=== PATIENT | female | born 1995 | race Caucasian/White ===

== ENCOUNTER 2016-10-05 14:14 | Inpatient (IN) | payer OTHER ==
[~2016-10-05] VITALS: Ht 160 cm; Wt 59.0 kg
[2016-10-05 14:35] VITALS: BP_SYST 101
[2016-10-05] MEDS ORDERED: VANCOMYCIN HCL 1,000 MG in NS 250 ML IV ONE (16:00)
[2016-10-05] MEDS ORDERED: MORPHINE 4 MG/ML INJ. SYRINGE IVP ONE (16:15)
[2016-10-05] MEDS ORDERED: DIPHENHYDRAMINE INJ 50 MG/ML VIAL IVP ONE (16:15)
[2016-10-05] MEDS ORDERED: VANCOMYCIN HCL 1000 MG/VIAL IV ONE ×2 (16:39→21:13)
[2016-10-05 16:48] LABS: HEMATOCRIT 39.1 % (36-48); HEMOGLOBIN 12.9 g/dL (12.0-16.0); MEAN CORPUSCULAR HEMOGLOBIN 29 pg (27-31); MEAN CORPUSCULAR HGB CONC 33 % (32-36); MEAN CORPUSCULAR VOLUME 89 fL (79.0-98.0); PLATELET COUNT (AUTO) 187 K/uL (130-430); RED CELL DISTRIBUTION WIDTH 11.9 % (9.0-15.0); WHITE BLOOD COUNT (AUTO) 5.5 K/uL (4.8-10.8)
[2016-10-05 16:48] LABS: BILIRUBIN,URINE NEGATIVE (NEGATIVE); BLOOD, URINE NEGATIVE (NEGATIVE); CLARITY/URINE HAZY (CLEAR); COLOR,URINE YELLOW (YELLOW); GLUCOSE,URINE NEGATIVE (NEGATIVE); KETONES,URINE NEGATIVE (NEGATIVE); LEUKOCYTE ESTERASE ,URINE TRACE (NEGATIVE); NITRITE, URINE NEGATIVE (NEGATIVE); PROTEIN URINE NEGATIVE (NEGATIVE); UROBILINOGEN,URINE 0.2 (0.2-1.0)
[2016-10-05 16:56] LABS: ALBUMIN 3.7 g/dL (3.4-4.8); CALCIUM 8.3 mg/dL (8.4-11.0); CREATININE 0.96 mg/dL (0.55-1.30); POTASSIUM 3.9 mmol/L (3.5-5.1); TOTAL BILIRUBIN 0.2 mg/dL (0.0-1.0); TOTAL PROTEIN, SERUM 7.2 g/dL (6.4-8.3)
[2016-10-05 17:13] LABS: BAND % (MANUAL) 1 % (0-6); BASOPHILS % (MANUAL) 0 % (0-2); EOSINOPHILS % (MANUAL) 14 % (0-7); LYMPHOCYTES % (MANUAL) 16 % (20-46); MONOCYTES % (MANUAL) 6 % (0-11)
[2016-10-05 17:17] LABS: BACTERIA,URINE FEW /HPF (None Seen); RBC,URINE 0-3 /HPF (0-3)
[2016-10-05] MEDS ORDERED: ONDANSETRON HCL 4 MG/2 ML VIAL IVP PRN (19:30)
[2016-10-05] MEDS ORDERED: ACETAMINOPHEN 325 MG TABLET PO PRN (19:30)
[2016-10-05] MEDS ORDERED: IBUP-1969 PO (19:48)
[2016-10-05] MEDS ORDERED: SULF1TAB48 PO (19:48)
[2016-10-05] MEDS ORDERED: CEPH-568 PO (19:48)
[2016-10-05 20:14] VITALS: BP_SYST 99
[2016-10-05 20:15] VITALS: BP_SYST 101
[2016-10-05 20:30] VITALS: BP_SYST 101
[2016-10-05] MEDS: KETOROLAC TROMETHAMINE 15 MG VIAL IVP PRN (22:07)
[2016-10-06] VITALS (7 sets, daily range): BP systolic 89–101
[2016-10-06] MEDS: NACL 0.9% 1,000 ML IV SCH ×3 (00:32→21:44)
[2016-10-06] MEDS ORDERED: VANCOMYCIN HCL 1 GM/NS PREMIX 250 ML IV ONE (04:00)
[2016-10-06 06:44] LABS: BASOPHILS % (AUTO) 0.2 % (0.0-2.0); EOSINOPHILS # (AUTO) 0.8 K/uL (0.0-0.4); EOSINOPHILS % (AUTO) 14.3 % (0.0-4.0); HEMOGLOBIN 12.7 g/dL (12.0-16.0); LYMPHOCYTES # (AUTO) 0.9 K/uL (1.0-5.5); LYMPHOCYTES % (AUTO) 15.8 % (20.5-51.5); MEAN CORPUSCULAR HEMOGLOBIN 30 pg (27-31); MEAN CORPUSCULAR HGB CONC 33 % (32-36); MEAN CORPUSCULAR VOLUME 90 fL (79.0-98.0); MONOCYTES # (AUTO) 0.9 K/uL (0.0-1.0); NEUTROPHILS # (AUTO) 3.1 K/uL (1.8-7.7); NEUTROPHILS % (AUTO) 54.7 % (40.0-70.0); PLATELET COUNT (AUTO) 145 K/uL (130-430); RED BLOOD CELL COUNT(AUTO) 4.25 MIL/uL (4.2-6.2); RED CELL DISTRIBUTION WIDTH 11.9 % (9.0-15.0); WHITE BLOOD COUNT (AUTO) 5.7 K/uL (4.8-10.8)
[2016-10-06 06:54] LABS: POTASSIUM 3.9 mmol/L (3.5-5.1)
[2016-10-06 07:57] LABS: CREATININE 0.9 mg/dL (0.55-1.30)
[2016-10-06] MEDS: VANCOMYCIN HCL 1,000 MG in NS 250 ML IV SCH ×2 (11:13→23:26)
[2016-10-06] MEDS: KETOROLAC TROMETHAMINE 15 MG VIAL IVP PRN (14:20)
[2016-10-06] MEDS: CLINDAMYCIN 600 MG in D5W 50 ML IV SCH (18:37)
[2016-10-07] MEDS: CLINDAMYCIN 600 MG in D5W 50 ML IV SCH ×4 (00:50→17:34)
[2016-10-07 04:11] VITALS: BP_SYST 93
[2016-10-07] MEDS: KETOROLAC TROMETHAMINE 15 MG VIAL IVP PRN ×2 (05:45→15:33)
[2016-10-07 08:36] VITALS: BP_SYST 101
[2016-10-07] MEDS: NACL 0.9% 1,000 ML IV SCH ×3 (11:54→23:29)
[2016-10-07] MEDS: VANCOMYCIN HCL 1,000 MG in NS 250 ML IV SCH ×2 (11:58→23:29)
[2016-10-07 12:28] VITALS: BP_SYST 100
[2016-10-07] MEDS: ALBUTEROL SULFATE 0.083% 2.5 MG/3 ML VIAL.NEB INH SCH ×2 (16:00→18:00)
[2016-10-07 16:28] VITALS: BP_SYST 99
[2016-10-07 18:28] VITALS: BP_SYST 99
[2016-10-07 20:00] VITALS: BP_SYST 111
[2016-10-08 00:36] VITALS: BP_SYST 98
[2016-10-08] MEDS: CLINDAMYCIN 600 MG in D5W 50 ML IV SCH ×3 (01:43→13:26)
[2016-10-08 03:32] VITALS: BP_SYST 98
[2016-10-08] MEDS: ALBUTEROL SULFATE 0.083% 2.5 MG/3 ML VIAL.NEB INH SCH ×3 (06:00→12:00)
[2016-10-08 08:00] VITALS: BP_SYST 121
[2016-10-08] MEDS: VANCOMYCIN HCL 1,000 MG in NS 250 ML IV SCH (10:51)
[2016-10-08 12:18] VITALS: BP_SYST 98
[2016-10-08 13:35] VITALS: BP_SYST 98
[2016-10-08] MEDS ORDERED: VANCOMYCIN HCL 1,000 MG in NS 250 ML IV SCH (19:00)
== END 2016-10-08 14:35 | disposition home or self-care (01) | DRG 603 ==
LOC: SED 14:14 → SMU 19:27
PROVIDERS: ADMIT Internal Medicine Hospice and Palliative Medicine; ATTEND Internal Medicine Hospice and Palliative Medicine
DX: L03.113 Cellulitis of right upper limb (principal); J98.01 Acute bronchospasm; B95.62 Methicillin resistant Staphylococcus aureus infection as the cause of diseases classified elsewhere; L02.423 Furuncle of right upper limb; Z86.19 Personal history of other infectious and parasitic diseases
CPT/HCPCS: 36415; 71010; 73090; 80048; 80053; 80202-TC; 81000-TC; 83605; 85007; 85025; 85027; 87040-TC; 87081; 87086; 96365; 96366; 96375; 99285; J1200; J1885; J2270; J3370; J3490; J7030; J7050; J7060

== ENCOUNTER 2017-03-12 14:10 | Day surgery (SDC) | payer OTHER ==
[~2017-03-12] VITALS: Ht 160 cm; Wt 63.5 kg
[~2017-03-12 14:10] MED LIST: IBUP-1969 PO
[2017-03-12 14:24] VITALS: BP_SYST 111
--- NOTE | 2017-03-12 14:31 | NUR ---
Pt to bed 7, placed in gown for evaluation.
--- NOTE | 2017-03-12 14:35 | NUR ---
Dr. Walter at bedside for evaluation
[2017-03-12] MEDS ORDERED: NACL 0.9% 1,000 ML IV ONE ×3 (14:45→17:30)
[2017-03-12] MEDS ORDERED: MORPHINE 2 MG/ML INJ. SYRINGE IVP ONE (14:45)
--- NOTE | 2017-03-12 14:56 | NUR ---
Medication administered. Pt tolerated well. No adverse reactions noted.
--- NOTE | 2017-03-12 14:57 | NUR ---
Pt has been bleeding, filling up more than a pad an hour since February, pt states took the pill but bleeding has not stopped, so went to PCP yesterday and they told the pt she needed another pill. Pt complains of abdominal pain and cramping for the past month. Pt is pale and cool to touch, denies vomiting but has nausea. Pt was wheeled into ER because of generalized weakness. No other injuries/complaints per pt or noted.
[2017-03-12 15:02] LABS: BASOPHILS # (AUTO) 0.1 K/uL (0.0-0.2); BASOPHILS % (AUTO) 0.4 % (0.0-2.0); EOSINOPHILS # (AUTO) 0.3 K/uL (0.0-0.4); EOSINOPHILS % (AUTO) 2.3 % (0.0-4.0); HEMATOCRIT 27.4 % (36-48); HEMOGLOBIN 9.2 g/dL (12.0-16.0); LYMPHOCYTES # (AUTO) 2.1 K/uL (1.0-5.5); LYMPHOCYTES % (AUTO) 14.7 % (20.5-51.5); MEAN CORPUSCULAR HEMOGLOBIN 30 pg (27-31); MEAN CORPUSCULAR HGB CONC 34 % (32-36); MEAN CORPUSCULAR VOLUME 90 fL (79.0-98.0); MONOCYTES # (AUTO) 0.6 K/uL (0.0-1.0); MONOCYTES % (AUTO) 4.3 % (1.7-9.3); NEUTROPHILS # (AUTO) 10.9 K/uL (1.8-7.7); NEUTROPHILS % (AUTO) 78.3 % (40.0-70.0); PLATELET COUNT (AUTO) 289 K/uL (130-430); RED BLOOD CELL COUNT(AUTO) 3.04 MIL/uL (4.2-6.2); RED CELL DISTRIBUTION WIDTH 11.9 % (9.0-15.0)
--- NOTE | 2017-03-12 15:08 | NUR ---
Pt went to US in stable condition
[2017-03-12 15:23] LABS: CALCIUM 8.3 mg/dL (8.4-11.0); CREATININE 0.8 mg/dL (0.55-1.30); POTASSIUM 3.9 mmol/L (3.5-5.1)
--- NOTE | 2017-03-12 15:35 | NUR ---
Pt returned from US in stable condition
[2017-03-12 15:49] LABS: ALBUMIN 3.5 g/dL (3.4-4.8); TOTAL BILIRUBIN 0.5 mg/dL (0.0-1.0)
[2017-03-12 16:05] LABS: PROTHROMBIN TIME 9.8 SECS (9.5-12.5)
--- NOTE | 2017-03-12 16:28 | NUR ---
Dr Walter at bedside.
--- NOTE | 2017-03-12 16:30 | NUR ---
Medication administered. Pt tolerated well. No adverse reactions noted.
--- NOTE | 2017-03-12 17:35 | NUR ---
IV fluids administered. Pt tolerated well. No adverse reactions noted.
--- NOTE | 2017-03-12 17:55 | NUR ---
Dr Jackson SMYTH at bedside. Pt signed consent for dilation and curettage. Pt resting in bed. No distress noted.
--- NOTE | 2017-03-12 18:18 | NUR ---
Dr Lancaster was at bedside explaining procedure, pt signed and had no questions.
[2017-03-12] MEDS ORDERED: NS IRRIG SOLN 1000 ML IR ONE (18:21)
[2017-03-12] MEDS ORDERED: NS 1000 ML BAG IV ONE (18:21)
[2017-03-12] MEDS ORDERED: SEVOFLURANE 15 MIN GAS INH ONE (18:21)
[2017-03-12] MEDS ORDERED: MIDAZOLAM HCL 5 MG/ML VIAL (VERSED) IV ONE (18:21)
[2017-03-12] MEDS ORDERED: PROPOFOL 200MG/ 20ML VIAL (DIPRIVAN) IV ONE (18:21)
[2017-03-12] MEDS ORDERED: DEXAMETHASONE SOD PHOSPHATE 4 MG/ML VIAL IVP ONE (18:21)
[2017-03-12] MEDS ORDERED: OXYTOCIN 10 UNIT/ML VIAL IV ONE (18:21)
[2017-03-12] MEDS ORDERED: METOCLOPRAMIDE HCL 10 MG/2 ML VIAL IVP ONE (18:21)
[2017-03-12] MEDS ORDERED: fentaNYL CITRATE/PF 100 MCG/2 ML AMP IVP ONE (18:21)
--- NOTE | 2017-03-12 18:31 | NUR ---
OR Nurse is here to take the pt to OR in stable condition
--- NOTE | 2017-03-12 18:34 | NUR ---
Patient will be admitted to care of Dr Paz. Admitted to outpatient surgery unit. Will go to OR. Belongings list completed. Summary report printed. Report will be given at bedside. Dr Paz and Dr Lancaster aware of BP
[2017-03-12] MEDS ORDERED: ALBUMIN HUMAN 5% 500 ML IV ONE (18:40)
[2017-03-12] MEDS ORDERED: OXYCODONE/ACETAMINOPHEN 5-325 TABLET PO PRN (19:15)
[2017-03-12] MEDS ORDERED: HYDROcodone/ACETAMIN 5-325 MG TAB (NORCO/ VICODIN) PO PRN (19:15)
[2017-03-12] MEDS ORDERED: ONDANSETRON HCL 4 MG/2 ML VIAL IVP PRN (19:15)
--- NOTE | 2017-03-12 20:14 | NUR ---
POST-OP TO [facility] NOTE Received patient via bed in stable condition. Report given by CHERI Lowry. Patient AAO x4. Denied of pain at this time. VS: T=97.5, P=82, R=16, BP=95/59, O2 ngv=911% RA. On s/p D & C suction, no active vaginal bleeding noted at this time. Skin warm and dry to touch. IV intact to RAC, no redness, no swelling, no drainage, infusing NS at this time. Boy friend t bedside. Discussed the safety issue, use call light when need help, plan of care, and will discharge when stable possible tonight, verbally understanding. Instructed how to use call light and the room environment. Catherine will bed her nurse, her room is [address]B, verbally understanding. Safety measure mainlined. Bed in low position, side rails up. Call light within reached. Will continue to monitor.
[2017-03-12 20:26] VITALS: BP_SYST 95
--- NOTE | 2017-03-12 20:40 | NUR ---
AMBULATED TO BATHROOM WITH AUDIT ANALYST Void without difficult, no active bleeding note. No acute distress. Safety measure maintained. Call light within reached. Continue to monitor.
[2017-03-12 21:46] VITALS: BP_SYST 92
--- NOTE | 2017-03-12 22:10 | NUR ---
AMBULATED TO BATHROOM WITH SUPPLY CHAIN DIRECTOR Void without difficulty, minimal bleeding note at this time. No acute distress. Safety measure maintained. Call light within reached. Continue to monitor.
[2017-03-12] MEDS ORDERED: DOXY-4 PO (22:16)
--- NOTE | 2017-03-12 22:30 | NUR ---
NOTE Patient resting on the bed. No acute distress. Denied of pain. No vaginal bleeding noted at this time. VS stable. Will discharge home if no vaginal bleeding.
--- NOTE | 2017-03-12 23:00 | NUR ---
NOTE Patient resting on the bed. No acute distress. Respiration even and unlabored. Denied of pain. Skin warm and dry to touch. No active vaginal bleeding noted. Will discharge patient tonight.
--- NOTE | 2017-03-12 23:23 | NUR ---
D/C Patient Patient given medication reconciliation form and D/C instructions. Exit Care provided. Patient verbalized understanding. MD discussed with patient the results and treatment provided. Ambulatory with steady gait for discharge to home. Patient in stable condition, ID band removed. IV catheter removed, intact and dressing applied, no active bleeding. Rx of Vibramycin and Methergine given. Patient educated on pain management and to completed Vibramycin as ordered and Methergine as needed for bleeding, make appointment with OB doctor in a week, verbally understanding. All belongings sent with patient.
== END 2017-03-12 23:23 | disposition home or self-care (01) ==
LOC: SED 14:10 → SDS 18:20
PROVIDERS: ATTEND Specialist
DX: O03.4 Incomplete spontaneous abortion without complication (principal); D64.9 Anemia, unspecified
CPT/HCPCS: 36415; 59812; 76801; 76817; 80053; 84702; 85025; 85610; 85730; 86886; 86900; 86901; 88305; 96361; 96374; 99285; J1100; J2250; J2270; J2590; J2704; J2765; J3010; J7030; P9041

== ENCOUNTER 2022-02-20 17:38 | Inpatient (IN) | payer OTHER ==
[~2022-02-20] VITALS: Ht 160 cm; Wt 77.6 kg
[~2022-02-20 17:38] MED LIST changes: +DOXY100C PO
[2022-02-20] MEDS ORDERED: TERBUTALINE SULFATE 1 MG/ML VIAL SUBCUT ONE (21:00)
[2022-02-20] MEDS ORDERED: OXYTOCIN/0.9 % SODIUM CHLORIDE 1,000 ML IV SCH (21:00)
[2022-02-20] MEDS ORDERED: NALBUPHINE HCL 10 MG/ML AMP IVP PRN (21:00)
[2022-02-20] MEDS ORDERED: NALBUPHINE HCL 10 MG/ML AMP IM PRN (21:00)
[2022-02-20 21:07] VITALS: BP_SYST 101
[2022-02-20 21:31] LABS: BASOPHILS # (AUTO) 0.1 K/uL (0.0-0.2); BASOPHILS % (AUTO) 0.7 % (0.0-2.0); EOSINOPHILS # (AUTO) 0.2 K/uL (0.0-0.4); EOSINOPHILS % (AUTO) 2.2 % (0.0-4.0); HEMATOCRIT 34.7 % (36-48); HEMOGLOBIN 12.1 g/dL (12.0-16.0); LYMPHOCYTES # (AUTO) 2.5 K/uL (1.0-5.5); LYMPHOCYTES % (AUTO) 32.7 % (20.5-51.5); MEAN CORPUSCULAR HEMOGLOBIN 31 pg (27-31); MEAN CORPUSCULAR HGB CONC 35 % (32-36); MEAN CORPUSCULAR VOLUME 89 fL (79.0-98.0); MONOCYTES # (AUTO) 0.5 K/uL (0.0-1.0); NEUTROPHILS # (AUTO) 4.4 K/uL (1.8-7.7); NEUTROPHILS % (AUTO) 57.4 % (40.0-70.0); PLATELET COUNT (AUTO) 164 K/uL (130-430); RED BLOOD CELL COUNT(AUTO) 3.91 MIL/uL (4.2-6.2); RED CELL DISTRIBUTION WIDTH 13.7 % (9.0-15.0); WHITE BLOOD COUNT (AUTO) 7.7 K/uL (4.8-10.8)
[2022-02-20] MEDS ORDERED: FLU VACC QS2022-23(6MOS UP)/PF 0.5 ML/SYR SYRINGE I.M. PRN (22:00)
[2022-02-21] MEDS: LR 1,000 ML IV SCH ×4 (00:11→07:37)
[2022-02-21] MEDS ORDERED: ROPIVACAINE HCL/PF 0.2% 200 ML ONE (01:08)
[2022-02-21] MEDS ORDERED: fentaNYL CITRATE/PF 100 MCG/2 ML AMP ONE (01:08)
[2022-02-21] MEDS ORDERED: FENT2mCg/mL-ROPIVA0.2%/NS EPID 200 ML EP SCH (03:00)
[2022-02-21] MEDS ORDERED: LIGHT MINERAL OIL 10 ML VIAL MC ONE (08:58)
[2022-02-21] MEDS ORDERED: NALOXONE HCL 0.4 MG/ML AMP (NARCAN) ONE (08:58)
[2022-02-21] MEDS ORDERED: LIDOCAINE PF 1% 30ML(POUR BTL) INJ ONE (08:58)
[2022-02-21] MEDS ORDERED: HYDROCORTISONE 0.5% CREAM 28.4 GM CREAM.GM. TP PRN (11:45)
[2022-02-21] MEDS ORDERED: MEASLES,MUMPS&RUBELLA VACC/PF 12500 UNIT/0.5 ML VIAL SUBQ PRN (11:45)
[2022-02-21] MEDS ORDERED: HYDROcodone/ACETAMIN 5-325 MG TAB (NORCO/ VICODIN) PO PRN (11:45)
[2022-02-21] MEDS ORDERED: RHO(D) IMMUNE GLOBULIN/MALTOSE 1500 UNITS/1.3 ML (WINHRO) IM PRN (11:45)
[2022-02-21] MEDS ORDERED: DIPHTH,PERTUSS(ACELL),TET VAC 0.5 ML VIAL (Tdap) I.M. PRN (11:45)
[2022-02-21] MEDS ORDERED: DERMOPLAST SPRAY TP PRN (11:45)
[2022-02-21] MEDS ORDERED: LANOLIN 7 GM OINT. TP PRN (11:45)
[2022-02-21] MEDS ORDERED: OXYTOCIN/0.9 % SODIUM CHLORIDE 1,000 ML IV ONE (11:45)
[2022-02-21] MEDS ORDERED: METHYLERGONOVINE MALEATE 0.2 MG TABLET PO PRN (11:45)
[2022-02-21] MEDS ORDERED: WITCH HAZEL LEAF 1 MED.PAD MED.PAD TP PRN (11:45)
[2022-02-21] MEDS ORDERED: OXYCODONE/ACETAMINOPHEN 5-325 TABLET PO PRN ×2 (11:45)
[2022-02-21] MEDS ORDERED: ANUSOL 1 EA SUPP.RECT (PREPARATION H) RC PRN (11:45)
[2022-02-21] MEDS ORDERED: NALOXONE HCL 0.4 MG/ML AMP (NARCAN) IVP PRN (11:45)
[2022-02-21] MEDS ORDERED: OXYTOCIN/0.9 % SODIUM CHLORIDE 1,000 ML IV SCH (11:45)
[2022-02-21] MEDS: IBUPROFEN 600 MG TABLET PO SCH ×3 (12:39→23:47)
[2022-02-21] MEDS ORDERED: SENNOSIDES/DOCUSATE SODIUM 1 TAB TABLET(SENOKOT-S) PO SCH (21:00)
[2022-02-21] MEDS ORDERED: TEMAZEPAM 15 MG CAPSULE PO PRN (21:00)
[2022-02-22] MEDS: IBUPROFEN 600 MG TABLET PO SCH ×2 (06:04→12:06)
[2022-02-22 07:12] LABS: BASOPHILS % (AUTO) 0.3 % (0.0-2.0); EOSINOPHILS # (AUTO) 0.2 K/uL (0.0-0.4); EOSINOPHILS % (AUTO) 1.8 % (0.0-4.0); HEMATOCRIT 25.2 % (36-48); HEMOGLOBIN 8.5 g/dL (12.0-16.0); LYMPHOCYTES # (AUTO) 2.3 K/uL (1.0-5.5); LYMPHOCYTES % (AUTO) 17.5 % (20.5-51.5); MEAN CORPUSCULAR HEMOGLOBIN 31 pg (27-31); MEAN CORPUSCULAR HGB CONC 34 % (32-36); MEAN CORPUSCULAR VOLUME 90 fL (79.0-98.0); MONOCYTES # (AUTO) 0.7 K/uL (0.0-1.0); NEUTROPHILS # (AUTO) 9.9 K/uL (1.8-7.7); NEUTROPHILS % (AUTO) 75.4 % (40.0-70.0); PLATELET COUNT (AUTO) 128 K/uL (130-430); WHITE BLOOD COUNT (AUTO) 13.1 K/uL (4.8-10.8)
[2022-02-22] MEDS ORDERED: DOCUSATE SODIUM 100 MG CAPSULE PO SCH (09:00)
== END 2022-02-22 17:30 | disposition home or self-care (01) | DRG 806 ==
LOC: SPU 17:38 → OBSVTOIN 17:38
PROVIDERS: ADMIT Specialist; ATTEND Specialist
PROC: 10E0XZZ Delivery of Products of Conception, External Approach (ICD-10-PCS; principal; 2022-02-21)
PROC: 0KQM0ZZ Repair Perineum Muscle, Open Approach (ICD-10-PCS; 2022-02-21)
PROC: 3E0R3BZ Introduction of Anesthetic Agent into Spinal Canal, Percutaneous Approach (ICD-10-PCS; 2022-02-21)
PROC: 00HU33Z Insertion of Infusion Device into Spinal Canal, Percutaneous Approach (ICD-10-PCS; 2022-02-21)
DX: O48.0 Post-term pregnancy (principal); O41.03X0 Oligohydramnios, third trimester, not applicable or unspecified; Z37.0 Single live birth; O76 Abnormality in fetal heart rate and rhythm complicating labor and delivery; O70.1 Second degree perineal laceration during delivery; Z20.822 Contact with and (suspected) exposure to COVID-19; Z3A.40 40 weeks gestation of pregnancy
CPT/HCPCS: 36415; 85025; 86592; 86886; 86900; 86901; 94760; J2001; J2310; J2590; J3010